=== PATIENT | female | born 1985 ===

== ENCOUNTER 2017-03-24 15:31 | Emergency (ER) | payer OTHER ==
[2017-03-24 16:46] LABS: RBC URINE 4 /hpf (0-3); URINE BACTERIA RARE (<OCC); URINE BILIRUBIN NEGATIVE (NEGATIVE); URINE BLOOD NEGATIVE (NEGATIVE); URINE COLOR Yellow (YELLOW); URINE GLUCOSE (UA) NORMAL (Normal); URINE KETONE NEGATIVE (NEGATIVE); URINE LEUKOCYTE ESTERASE NEG Leu/uL (Negative); URINE PROTEIN NEGATIVE (NEGATIVE); URINE UROBILINOGEN NORMAL mg/dL (0.2-1.0); WBC URINE 4 /hpf (0-5)
[2017-03-24 19:42] VITALS: RESP 20
[2017-03-24] MEDS ORDERED: Sodium Chloride 0.9% 1,000 ML IV ONE (19:57)
[2017-03-24 19:59] LABS: BASO % 0.6 % (0.0-2.0); EOS # 0.1 K/uL (0.0-0.7); EOS % 0.9 % (0.0-4.0); HEMATOCRIT 36.2 % (34.0-47.0); LYMPH # 1.6 K/uL (1.0-4.3); LYMPH % 23.2 % (20.0-40.0); MEAN CELL VOLUME 87.8 fL (81.0-99.0); MEAN CORPUSCULAR HEMOGLOBIN 30.9 pg (27.0-31.0); MEAN CORPUSCULAR HGB CONC 35.2 g/dL (33.0-37.0); MONO # 0.5 K/uL (0.0-0.8); MONO % 7.7 % (0.0-10.0); NRBC % 0.1 % (0.0-2.0); RED CELL DISTRIBUTION WIDTH 12.7 % (11.5-14.5); WHITE BLOOD COUNT 6.8 K/uL (4.8-10.8)
[2017-03-24] MEDS ORDERED: Sodium Chloride 0.9% 1,000 ML ONE (20:02)
[2017-03-24 20:03] LABS: CHLORIDE 99 mmol/L (98-107); SODIUM 137 mmol/L (132-148)
[2017-03-24 20:06] LABS: ALB/GLOB RATIO 1.2 (1.0-2.1); ALKALINE PHOSPHATASE 72 U/L (38-126); ALT/SGPT 55 U/L (9-52); AST/SGOT 31 U/L (14-36); BLOOD UREA NITROGEN 9 mg/dL (7-17); CALCIUM 9.4 mg/dl (8.6-10.4); CARBON DIOXIDE 23 mmol/L (22-30); GFR AFRICAN-AMERICAN > 60; GLUCOSE,RANDOM 78 mg/dL (65-105)
--- NOTE | 2017-03-24 20:23 | C.PDOC ---
History Of Present Illness 31 year old female presents to the ED with complaints of persistent abdominal pain in the RUQ for approximately one month with associated nausea. Patient denies vomiting, diarrhea, or fever. Chief Complaint (Nursing): Abdominal Pain History Per: Patient History/Exam Limitations: no limitations Onset/Duration Of Symptoms: Persistent (one month ) Current Symptoms Are (Timing): Still Present Location Of Pain/Discomfort: Epigastric Radiation Of Pain To:: None Quality Of Discomfort: "Pain" Associated Symptoms: Nausea. denies: Fever, Chills, Vomiting, Diarrhea Exacerbating Factors: None Alleviating Factors: None Recent travel outside of the [place]: No Abnormal Vaginal Bleeding: No Past Medical History Reviewed: Historical Data, Nursing Documentation, Vital Signs Vital Signs: Last Vital Signs Temp 98.4 F 03/24/17 21:07 Pulse 75 03/24/17 21:07 Resp 20 03/24/17 21:07 BP 104/67 03/24/17 21:07 Pulse Ox 100 03/24/17 21:32 - Medical History PMH: Anxiety Family History: States: Unknown Family Hx - Social History Hx Tobacco Use: No Hx Alcohol Use: Yes (former) Hx Substance Use: No - Immunization History Hx Tetanus Toxoid Vaccination: No Hx Influenza Vaccination: No Hx Pneumococcal Vaccination: No Review Of Systems Constitutional: Negative for: Fever, Chills Cardiovascular: Negative for: Chest Pain, Palpitations Respiratory: Negative for: Cough, Shortness of Breath Gastrointestinal: Positive for: Nausea, Abdominal Pain. Negative for: Vomiting , Diarrhea Physical Exam - Physical Exam Appears: Non-toxic, In Acute Distress (patient appears to be in mild distress) Skin: Warm, Dry Head: Atraumatic, Normacephalic Eye(s): bilateral: Normal Inspection, PERRL, EOMI Oral Mucosa: Moist Neck: Normal ROM, Supple Chest: Symmetrical, No Deformity Cardiovascular: Rhythm Regular, No Murmur Respiratory: Normal Breath Sounds, No Rales, No Rhonchi, No Wheezing Gastrointestinal/Abdominal: Bowel Sounds (postive bowel sounds ), Soft, Tenderness (epigastric and RUQ tenderness), No Distention, No Guarding, No Rebound Extremity: Normal ROM, No Tenderness ED Course And Treatment - Laboratory Results Result Diagrams: 03/24/17 19:50 03/24/17 19:50 O2 Sat by Pulse Oximetry: 100 (room air ) - CT Scan/US US Abdomen Other Rad Studies (CT/US): Read By Radiologist, Radiology Report Reviewed CT/US Interpretation: FINDINGS: Liver: The liver measures 14.5 cm in craniocaudal span. There is normal blood flow to region in the. main portal vein. Phasic flow is noted within the middle hepatic vein. Gallbladder: Unremarkable. No gallstones. Common bile duct: Common bile duct measures 4 mm. No stones. No dilation. Pancreas: Unremarkable as visualized. Kidneys: The right kidney measures 11.2 x 4.7 x 5.4 cm. Left kidney measures 12.0 x 6 x 5.5 cm. No stones. No hydronephrosis. Spleen: The spleen measures 11.3 cm in craniocaudal span. Aorta: The distal abdominal aorta is not seen due to bowel gas. Inferior vena cava: Unremarkable. IMPRESSION: No acute findings. Progress Note: Blood work, labs, and abdomen US were ordered. Patient was given Bentyl and IV fluids. Disposition Counseled Patient/Family Regarding: Diagnosis - Disposition Referrals: [facility] [Outside] Disposition: HOME/ ROUTINE Disposition Time: 21:29 Condition: STABLE Prescriptions: Famotidine [Pepcid] 20 mg PO BID #30 tab Sucralfate [Carafate] 1 gm PO BID #20 tab Instructions: Gastritis (GEN) Forms: [facility] (O[place]i) - POA Present On Arrival: None - Clinical Impression Clinical Impression: Abdominal pain, Gastritis - Scribe Statement The provider has reviewed the documentation as recorded by the Darronibtree Gomez All medical record entries made by the Darronibe were at my direction and personally dictated by me. I have reviewed the chart and agree that the record accurately reflects my personal performance of the history, physical exam, medical decision making, and the department course for this patient. I have also personally directed, reviewed, and agree with the discharge instructions and disposition.
[2017-03-24 21:08] VITALS: BP 104/67; PULSE 75; TEMP 98.4
--- NOTE | 2017-03-24 21:18 | US ---
EXAM: US Abdomen Complete EXAM DATE/TIME: Exam ordered 03/24/2017 8:02 PM CLINICAL HISTORY: 31 years old, female; Pain; Abdominal pain; Generalized; Additional info: Abd pain/ HX of ovarian cyst TECHNIQUE: Real-time ultrasound of the abdomen (complete) with image documentation. COMPARISON: No relevant prior studies available. FINDINGS: Liver: The liver measures 14.5 cm in craniocaudal span. There is normal blood flow to region in the main portal vein. Phasic flow is noted within the middle hepatic vein. Gallbladder: Unremarkable. No gallstones. Common bile duct: Common bile duct measures 4 mm. No stones. No dilation. Pancreas: Unremarkable as visualized. Kidneys: The right kidney measures 11.2 x 4.7 x 5.4 cm. Left kidney measures 12.0 x 6 x 5.5 cm. No stones. No hydronephrosis. Spleen: The spleen measures 11.3 cm in craniocaudal span. Aorta: The distal abdominal aorta is not seen due to bowel gas. Inferior vena cava: Unremarkable. IMPRESSION: No acute findings.
[2017-03-24 21:32] VITALS: O2SAT 100
== END 2017-03-24 21:39 | disposition home or self-care (01) ==
LOC: C.ER 15:31
DX: K29.70 Gastritis, unspecified, without bleeding (principal); R10.11 Right upper quadrant pain
CPT/HCPCS: 76700; 80053; 81001; 83690; 84703; 85025; 96372; 99285; J0500; J7040